=== PATIENT | female | born 1985 | race Hispanic/Latino ===

== ENCOUNTER 2017-06-11 20:31 | Emergency (ER) | payer OTHER ==
[2017-06-11 20:45] VITALS: BP 115/82; PULSE 87; RESP 16; TEMP 98.9; O2SAT 97
--- NOTE | 2017-06-11 20:55 | ED PDOC ---
Upper Extremity Pain/Injury Time Seen by Provider: 06/11/17 20:44 Chief Complaint (Nursing): Abnormal Skin Integrity Chief Complaint (Provider): Right finger laceration History Per: Patient History/Exam Limitations: no limitations Onset/Duration Of Symptoms: Hrs Additional Complaint(s): Patient is a 31 y/o female with no significant past medical history presenting to the emergency department for a right finger laceration sustained while using a mandolin. The laceration (approx. 1.5 cm) is on her right pinky with no active bleeding noted. Denies any other complaints. Tetanus shot is up to date. PCP: none provided Past Medical History Reviewed: Historical Data, Nursing Documentation, Vital Signs Vital Signs: Last Vital Signs Temp 98.9 F 06/11/17 20:42 Pulse 87 06/11/17 20:42 Resp 16 06/11/17 20:42 BP 115/82 06/11/17 20:42 Pulse Ox 97 06/11/17 20:42 - Medical History PMH: No Chronic Diseases Denies: Chronic Kidney Disease - Surgical History Surgical History: No Surg Hx - Family History Family History: States: No Known Family Hx - Social History Current smoker - smoking cessation education provided: No Ex-Smoker (has not smoked in the last 12 months): No Alcohol: None Drugs: Denies - Allergies Allergies/Adverse Reactions: Allergies Allergy/AdvReac Type Severity Reaction Status Date / Time No Known Allergies Allergy Verified 06/11/17 20:42 Review of Systems ROS Statement: Except As Marked, All Systems Reviewed And Found Negative Skin: Positive for: Other (right pinky finger laceration with no active bleeding ) Physical Exam - Reviewed Nursing Documentation Reviewed: Yes Vital Signs Reviewed: Yes - Physical Exam Appears: Positive for: Well, Non-toxic, No Acute Distress Head Exam: Positive for: ATRAUMATIC, NORMAL INSPECTION, NORMOCEPHALIC Skin: Positive for: Normal Color, Warm, Dry Eye Exam: Positive for: Normal appearance Neck: Positive for: Normal Cardiovascular/Chest: Positive for: Regular Rate, Rhythm Respiratory: Negative for: Accessory Muscle Use, Respiratory Distress Extremity: Positive for: Normal ROM, Other (1.5 cm laceration of right 5th digit that enters skin at an angle with thin wound edges on one side) Neurologic/Psych: Positive for: Alert, Oriented (x3) - ECG O2 Sat by Pulse Oximetry: 97 (RA) Pulse Ox Interpretation: Normal Medical Decision Making Medical Decision Makin Irrigated area with normal saline and betadine. Steri-strips applied with good wound closure. Pt did not want tylenol or motrin in ER for pain. ~ Scribe Attestation: Documented by Keri Caruso, acting as a scribe for VIKAS Peterson. Provider Scribe Attestation: All medical record entries made by the Scribe were at my direction and personally dictated by me. I have reviewed the chart and agree that the record accurately reflects my personal performance of the history, physical exam, medical decision making, and the department course for this patient. I have also personally directed, reviewed, and agree with the discharge instructions and disposition. Disposition - Clinical Impression Clinical Impression: Finger laceration - Disposition Disposition: Routine/Home Disposition Time: 22:00 Condition: GOOD Instructions: Steristrips (ED) Forms: My[employer] (B[place]ian)
== END 2017-06-11 22:00 | disposition home or self-care (01) ==
LOC: H.ER 20:31
DX: S61.216A Laceration without foreign body of right little finger without damage to nail, initial encounter (principal); W26.8XXA Contact with other sharp object(s), not elsewhere classified, initial encounter; Y92.89 Other specified places as the place of occurrence of the external cause